=== PATIENT | male | born 1950 | race Caucasian/White ===

== ENCOUNTER 2018-11-07 06:06 | Day surgery (SDC) | payer MEDICARE ==
[2018-11-07] MEDS: Sodium Chloride 0.9% 1,000 ML IV SCH (07:08)
[2018-11-07] MEDS ORDERED: Midazolam 1 MG/ML 2 ML SDV ONE (07:08)
[2018-11-07] MEDS ORDERED: fentaNYL 100 MCG/2 ML SDV ONE (07:08)
[2018-11-07] MEDS ORDERED: Propofol 200 MG/20 ML SDV ONE (07:09)
[2018-11-07 09:07] VITALS: BP 108/73
--- NOTE | 2018-11-08 08:09 | PROC ---
DATE OF PROCEDURE: 11/07/2018 INDICATION: This is a 68-year-old male who comes in for a colonoscopy with a history of adenomatous polyps 5 years ago. The risks and benefits were explained to the patient and was taken to the OR. PROCEDURE IN DETAIL: Anesthesia was given by nurse welding supervisor. During the procedure, we used 2 mg of Versed, 100 mcg of fentanyl, and 110 mg of propofol. The Olympus 180-AL scope was used. It was placed into the rectum and after examination of the rectum with a gloved finger, the prostate was absent. The tube was placed in the rectum and advanced under direct vision. We did get to the cecum with minimal difficulty. Upon retraction of the tube, noted no lesions or ulceration, no abnormality throughout the entire colon. The tube was removed. The patient tolerated the procedure well. PREOPERATIVE DIAGNOSIS: History of adenomatous polyps. POSTOPERATIVE DIAGNOSIS: Normal colon from cecum to rectum. Routine screening should be done for this gentleman. Malik Eugene MD /[id number]
== END 2018-11-07 09:20 | disposition home or self-care (01) ==
LOC: JP.SDS 06:06
PROVIDERS: ATTEND Internal Medicine
DX: Z12.11 Encounter for screening for malignant neoplasm of colon (principal); Z86.010 Personal history of colon polyps; Z90.79 Acquired absence of other genital organ(s); I10 Essential (primary) hypertension
CPT/HCPCS: J2250; J2704; J3010; J7030

== ENCOUNTER 2019-12-16 10:01 | Emergency (ER) | payer MEDICARE ==
--- NOTE | 2019-12-16 11:21 | EDM.PDOC ---
ED HPI GENERAL MEDICAL PROBLEM - General Chief Complaint: Respiratory Problem Stated Complaint: PNEUMONIA GETTING WORSE Time Seen by Provider: 12/16/19 10:35 Source of Information: Reports: Patient History Limitations: Reports: No Limitations - History of Present Illness INITIAL COMMENTS - FREE TEXT/NARRATIVE: pt arrived with a known pneumonia. He is not improving like he should. His states he is having episodes where he gets sob. He is drinking and eating . He has not had a bm for the past 4-5 days. He does feel distended in his abdoman. He is not having pain in the abdoman. Onset: Gradual, Other (pt has been ill for 1 week. ) Duration: Day(s): Location: Reports: Chest, Abdomen, Other (pt is constipated. ) Associated Symptoms: Reports: Cough, Shortness of Breath, Other (pt is having episodes of sig sob. ) Chest Pain Score (Numeric/FACES): 6 - Related Data Allergies Allergy/AdvReac Type Severity Reaction Status Date / Time bee pollen Allergy Severe Anaphylactic Verified 12/20/19 12:24 Shock Home Meds: Home Meds EPINEPHrine [Epipen] 0.3 mg IM ASDIRECTED PRN 12/02/13 [History] Ascorbic Acid [Vitamin C] 500 mg PO DAILY 11/05/18 [History] Biotin 1 mg PO DAILY 11/05/18 [History] Cholecalciferol (Vitamin D3) [Vitamin D3] 2,000 unit PO DAILY 11/05/18 [History] Vitamin B Complex 1 each PO DAILY 11/05/18 [History] Lactobacillus Acidophilus [Probiotic] 1 each PO BID 04/22/19 [History] Amoxicillin/Potassium Clav [Amox Tr-K Clv 875-125 mg Tab] 1 each PO BID [History] predniSONE [Prednisone] 40 mg PO ASDIRECTED 12/16/19 [History] Past Medical History HEENT History: Reports: Allergic Rhinitis, Cataract, Hard of Hearing, Impaired Vision Cardiovascular History: Reports: High Cholesterol Respiratory History: Reports: Pneumonia, Recurrent Gastrointestinal History: Reports: Colon Polyp, PUD Genitourinary History: Reports: None Musculoskeletal History: Reports: Osteoarthritis Other Musculoskeletal History: right ankle pain- resolved as of 04/22/19 Neurological History: Reports: None Psychiatric History: Reports: None Endocrine/Metabolic History: Reports: None Hematologic History: Reports: Anemia Immunologic History: Reports: None Oncologic (Cancer) History: Reports: None Dermatologic History: Reports: None - Infectious Disease History Infectious Disease History: Reports: Chicken Pox - Past Surgical History Head Surgeries/Procedures: Reports: None HEENT Surgical History: Reports: None Cardiovascular Surgical History: Reports: None Respiratory Surgical History: Reports: None GI Surgical History: Reports: Colonoscopy Musculoskeletal Surgical History: Reports: Arthroscopic Knee, Other (See Below) Other Musculoskeletal Surgeries/Procedures:: Trigger right thumb Social & Family History - Tobacco Use Smoking Status *Q: Never Smoker - Caffeine Use Caffeine Use: Reports: Coffee, Soda, Tea - Recreational Drug Use Recreational Drug Use: No ED ROS GENERAL - Review of Systems Review Of Systems: See Below Constitutional: Reports: Chills, Malaise, Decreased Appetite HEENT: Reports: No Symptoms Respiratory: Reports: Shortness of Breath, Other (pt has episodes of sob. ) Cardiovascular: Reports: No Symptoms Endocrine: Reports: No Symptoms GI/Abdominal: Reports: No Symptoms : Reports: No Symptoms Musculoskeletal: Reports: No Symptoms Skin: Reports: No Symptoms ED EXAM, GENERAL - Physical Exam Exam: See Below Free Text/Narrative:: pt arrived because of fatique and feeling sob in episodes. He has not had a bm for the past 4-5 days. Exam Limited By: No Limitations General Appearance: Alert, Anxious, Mild Distress Ears: Normal TMs Nose: Normal Inspection Throat/Mouth: Normal Inspection Head: Atraumatic Neck: Normal Inspection Respiratory/Chest: Other (pt has good o2 sats. He is mildly wheezy. ) Cardiovascular: Regular Rate, Rhythm GI/Abdominal: Soft, Non-Tender (Male) Exam: Deferred Rectal (Males) Exam: Deferred Back Exam: Normal Inspection Extremities: Normal Inspection Neurological: Alert, Oriented, Normal Cognition Course - Vital Signs Last Recorded V/S: Last Vital Signs Temp 37.4 C 12/16/19 10:33 Pulse 67 12/16/19 10:55 Resp 21 H 12/16/19 10:29 BP 134/74 12/16/19 10:55 Pulse Ox 92 L 12/16/19 10:55 - Orders/Labs/Meds Labs: Laboratory Tests 12/16/19 12/16/19 12/16/19 Range/Units 11:00 11:00 11:00 WBC 6.8 (4.5-11.0) K/uL RBC 4.79 (4.30-5.90) M/uL Hgb 13.7 (12.0-15.0) g/dL Hct 42.2 (40.0-54.0) % MCV 88 (80-98) fL MCH 29 (27-31) pg MCHC 33 (32-36) % Plt Count 207 (150-400) K/uL Neut % (Auto) 72 H (36-66) % Lymph % (Auto) 10 L (24-44) % [place] % (Auto) 17 H (2-6) % Eos % (Auto) 0 L (2-4) % Baso % (Auto) 0 (0-1) % Sodium 141 (140-148) mmol/L Potassium 4.1 (3.6-5.2) mmol/L Chloride 103 (100-108) mmol/L Carbon Dioxide 28 (21-32) mmol/L Anion Gap 10.5 (5.0-14.0) mmol/L BUN 21 H (7-18) mg/dL Creatinine 1.2 (0.8-1.3) mg/dL Est Cr Clr Drug Dosing 61.97 mL/min Estimated GFR (MDRD) 60 (>60) Glucose 111 H (74-106) mg/dL Calcium 8.7 (8.5-10.1) mg/dL Total Bilirubin 0.6 (0.2-1.0) mg/dL AST 27 (15-37) U/L ALT 39 (12-78) U/L Alkaline Phosphatase 62 (46-116) U/L C-Reactive Protein 4.64 H (0.0-0.3) mg/dL Total Protein 6.7 (6.4-8.2) g/dL Albumin 3.6 (3.4-5.0) g/dL Globulin 3.1 (2.3-3.5) g/dL Albumin/Globulin Ratio 1.2 (1.2-2.2) Meds: Medications Discontinued Medications Generic Name Dose Route Start Last Admin Trade Name Freq PRN Reason Stop Dose Admin Albuterol 2.5 mg 12/16/19 12:11 12/16/19 12:41 Proventil Neb Soln NEB 12/16/19 12:12 2.5 mg ONETIME ONE Administration Bisacodyl 10 mg 12/16/19 11:33 12/16/19 11:42 Dulcolax RECTAL 12/16/19 11:34 10 mg ONETIME ONE Administration Magnesium Citrate 296 ml 12/16/19 11:33 12/16/19 11:42 Citrate Of Magnesia PO 12/16/19 11:34 296 ml ONETIME ONE Administration - Re-Assessments/Exams Free Text/Narrative Re-Assessment/Exam: 12/16/19 13:48 chest xray show a small area of infiltrate on the left. His wbc has dropped to 6,000. He does not have a fever. He dioes have alot of gas in the bowel and is constipated. He was given a bottle ogf magcitrate and a ducolax suupp. He did have a small stool with the supp. He was neg for unflu at the clinic. Departure - Departure Time of Disposition: 13:30 Disposition: Home, Self-Care 01 Condition: Fair Clinical Impression: Pneumonia, Constipation - Discharge Information Instructions: Upper Respiratory Infection, Adult, [id number] Referrals: PCP,None [Primary Care Provider] - Forms: ED Department Discharge Care Plan Goals: push fluides , high fiber diet, albuterol neb q6h for the next 4-5 days, finish the zithromax and augmentin, appt with Dr Eugene on sunday. send a nebulizer home with the pt. continue with the predisone Sepsis Event Note - Evaluation Sepsis Screening Result: No Definite Risk - Focused Exam Date Exam was Performed: 12/20/19 Time Exam was Performed: 19:15
[2019-12-16] MEDS ORDERED: Magnesium Citrate Solution 296 ML Bottle PO ONE (11:33)
[2019-12-16] MEDS ORDERED: Bisacodyl 10 MG Supp RECTAL ONE (11:33)
--- NOTE | 2019-12-16 11:39 | CR ---
CHEST: 2 view CLINICAL HISTORY:Pneumonia COMPARISON:None available FINDINGS: Heart size and pulmonary vascularity are normal. There is patchy density in the left lower lobe which appears to be pneumonic infiltrate. There is some mild patchy perihilar density on the right.. This could be some minimal atelectasis or infiltrate. There are no effusions. Impression: Patchy left lower lobe pneumonia Mild patchy right perihilar density. This may represent some patchy atelectasis or infiltrate Prior films would be helpful
[2019-12-16] MEDS ORDERED: Albuterol 0.083% 2.5 MG/3 ML Neb Soln NEB ONE (12:11)
== END 2019-12-16 13:53 | disposition home or self-care (01) ==
LOC: JP.ED 10:01
DX: J18.9 Pneumonia, unspecified organism (principal); K59.00 Constipation, unspecified; E78.00 Pure hypercholesterolemia, unspecified; Z79.899 Other long term (current) drug therapy; Z91.030 Bee allergy status
CPT/HCPCS: 36415; 71046; 71046-26; 80053; 85025; 86140; 94640; 99283; 99285-25; A9270-GY

== ENCOUNTER 2019-12-17 15:34 | Inpatient (IN) | payer MEDICARE ==
[2019-12-17] MEDS ORDERED: Sodium Chloride 0.9% 10 ML Syringe FLUSH PRN (15:55)
[2019-12-17] MEDS ORDERED: Dextrose 5%-0.45% NaCl 1,000 ML IV SCH (16:00)
[2019-12-17] MEDS ORDERED: Sodium Chloride 0.9% 1,000 ML IV SCH (19:30)
--- NOTE | 2019-12-17 19:46 | PCM.HP.2 ---
H&P History of Present Illness - General Date of Service: 12/17/19 Admit Problem/Dx: Admission Diagnosis/Problem Admission Diagnosis/Problem Ileus Source of Information: Patient, EMS, Family History Limitations: Reports: No Limitations, Respiratory Distress, Other ( Abdominal pain) - History of Present Illness Initial Comments - Free Text/Narative: He was seen 5 days ago and told he had pneumonia but the x-ray did not show a significant problem. He was started on Zithromax. He was started later after 2 visits to the ER and was placed on Augmentin. He has a sore throat and coughing and having abdominal pain. He was told he had constipation yesterday and took a laxative and passed liquid stools. He was complaining more about abd pain now made worse by a deep cough. Of concern is that he was exposed to multiple people who were on a ship and is concerned about the Coronavirus. He has production from a deep cough. He has had minimall food or liquids recently. ,He has had a fever up to 103 dec. F. Onset of Symptoms: Reports: Gradual, Other (5 days) Duration of Symptoms: Reports: Other (5 days) Location: Reports: Chest, Abdomen Abdomen Pain Score (Numeric/FACES): 0 - Related Data Allergies/Adverse Reactions: Allergies Allergy/AdvReac Type Severity Reaction Status Date / Time bee pollen Allergy Anaphylactic Verified 03/31/19 14:13 Shock Home Medications: Home Meds EPINEPHrine [Epipen] 0.3 mg IM ASDIRECTED PRN 12/02/13 [History] Ascorbic Acid [Vitamin C] 500 mg PO DAILY 11/05/18 [History] Biotin 1 mg PO DAILY 11/05/18 [History] Cholecalciferol (Vitamin D3) [Vitamin D3] 2,000 unit PO DAILY 11/05/18 [History] Vitamin B Complex 1 each PO DAILY 11/05/18 [History] Lactobacillus Acidophilus [Probiotic] 1 each PO BID 04/22/19 [History] Amoxicillin/Potassium Clav [Amox Tr-K Clv 875-125 mg Tab] 1 each PO BID [History] predniSONE [Prednisone] 40 mg PO ASDIRECTED 12/16/19 [History] Past Medical History HEENT History: Reports: Allergic Rhinitis, Cataract, Hard of Hearing, Impaired Vision Cardiovascular History: Reports: High Cholesterol Respiratory History: Reports: Pneumonia, Recurrent Gastrointestinal History: Reports: Colon Polyp, PUD Genitourinary History: Reports: None Musculoskeletal History: Reports: Osteoarthritis Other Musculoskeletal History: right ankle pain- resolved as of 04/22/19 Neurological History: Reports: None Psychiatric History: Reports: None Endocrine/Metabolic History: Reports: None Hematologic History: Reports: Anemia Immunologic History: Reports: None Oncologic (Cancer) History: Reports: None Dermatologic History: Reports: None - Infectious Disease History Infectious Disease History: Reports: Chicken Pox - Past Surgical History Head Surgeries/Procedures: Reports: None HEENT Surgical History: Reports: None Cardiovascular Surgical History: Reports: None Respiratory Surgical History: Reports: None GI Surgical History: Reports: Colonoscopy Musculoskeletal Surgical History: Reports: Arthroscopic Knee, Other (See Below) Other Musculoskeletal Surgeries/Procedures:: Trigger right thumb Social & Family History - Family History Family Medical History: Noncontributory - Tobacco Use Smoking Status *Q: Never Smoker Second Hand Smoke Exposure: No - Caffeine Use Caffeine Use: Reports: Soda - Recreational Drug Use Recreational Drug Use: No H&P Review of Systems - Review of Systems: Review Of Systems: See Below General: Reports: Fever, Chills, Malaise, Weakness, Fatigue, Decreased Appetite , Weight Loss HEENT: Reports: Sinus Congestion, Sore Throat Pulmonary: Reports: Shortness of Breath, Wheezing, Cough, Sputum Cardiovascular: Reports: No Symptoms Gastrointestinal: Reports: Abdominal Pain, Diarrhea, Decreased Appetite, Distension, Nausea Genitourinary: Reports: No Symptoms Skin: Reports: No Symptoms Neurological: Reports: Difficulty Walking, Weakness Exam - Exam Exam: See Below - Vital Signs Vital Signs: Last Vital Signs Temp 96.7 F L 12/17/19 15:51 Pulse 72 12/17/19 15:51 Resp 18 12/17/19 15:51 BP 142/78 H 12/17/19 15:51 Pulse Ox 95 12/17/19 15:51 Weight: 187 lb - Exam General: Oriented, Cooperative, Moderate Distress HEENT: PERRLA, Conjunctiva Clear, EACs Clear, Hearing Intact, Mucosa Moist & [place], Nares Patent, Normal Nasal Septum, Posterior Pharynx Clear Neck: Supple Lungs: Clear to Auscultation Cardiovascular: Regular Rate GI/Abdominal Exam: Tender, Abnormal Bowel Sounds Back Exam: Normal Inspection Extremities: Normal Inspection Peripheral Pulses: 1+: Radial (R), Femoral (L) Skin: Warm, Dry, Intact Neurological: Cranial Nerves Intact, Reflexes Equal Bilateral Neuro Extensive - Mental Status: Alert, Oriented x3, Normal Mood/Affect, Normal Cognition Neuro Extensive - Motor, Sensory, Reflexes: CN II-XII Intact, Normal Gait, Normal Reflexes Psychiatric: Alert, Labile Mood - Patient Data Result Diagrams: 12/17/19 20:25 12/17/19 20:25 Ken Results Last 24 hrs: Microbiology 12/17/19 18:43 Influenza Type A Antigen Screen - Final Nasal Aspirate, Right NEGATIVE INFLUENZA A VIRUS AG REFERENCE RANGE: NEGATIVE Influenza Type B Antigen Screen - Final NEGATIVE INFLUENZA B VIRUS AG REFERENCE RANGE: NEGATIVE Sepsis Event Note - Evaluation Sepsis Screening Result: No Definite Risk - Focused Exam Vital Signs: Vital Signs Temp Pulse Resp BP Pulse Ox 12/17/19 15:51 96.7 F L 72 18 142/78 H 95 Date Exam was Performed: 12/18/19 Time Exam was Performed: 08:53 Problem List Initiated/Reviewed/Updated: Yes Orders Last 24hrs: Active Orders 24 hr Category Date Time Status Admission Status [Patient Status] [ADT] Routine ADT 12/17/19 15:50 Active Patient Status [ADT] Routine ADT 12/17/19 19:23 Ordered Activity as Tolerated [RC] .Routine Care 12/17/19 17:11 Active Height and Weight [RC] DAILY Care 12/17/19 19:23 Ordered Intake and Output [RC] QSHIFT Care 12/17/19 19:25 Ordered Oxygen Therapy [RC] PRN Care 12/17/19 19:23 Ordered Peripheral IV Care [RC] . DIRECTED Care 12/17/19 15:55 Active Up to Chair [RC] QID Care 12/17/19 19:23 Ordered VTE/DVT Education [RC] Per Unit Routine Care 12/17/19 19:23 Ordered Vital Signs [RC] Q4H Care 12/17/19 15:51 Active Vital Signs [RC] Q4H Care 12/17/19 19:23 Ordered NPO Now [Nothing per Oral Now Diet] [DIET] Diet 12/17/19 Dinner Active CBC WITH AUTO DIFF [HEME] Routine Lab 12/17/19 19:28 Ordered COMPREHENSIVE METABOLIC PN,CMP [CHEM] Routine Lab 12/17/19 19:28 Ordered Dextrose 5%-0.45% NaCl [Dextrose 5%-1/2 NS] 1,000 ml Med 12/17/19 16:00 Active IV ASDIRECTED Sodium Chloride 0.9% @ 125 MLS/HR (1000ml) Med 12/17/19 19:30 Ordered Sodium Chloride 0.9% [Normal Saline] 1,000 ml IV ASDIRECTED Sodium Chloride 0.9% [Saline Flush] Med 12/17/19 15:55 Active 10 ml FLUSH ASDIRECTED PRN cefTRIAXone [Rocephin] 1 gm Med 12/17/19 19:45 Ordered Sodium Chloride 0.9% [Normal Saline] 50 ml IV Q24H Isolation [COMM] Routine Oth 12/17/19 18:37 Ordered Peripheral IV Insertion Adult [OM.PC] Routine Oth 12/17/19 15:55 Ordered SCD [Sequential Compression Device] [OM.PC] Routine Oth 12/17/19 15:51 Ordered Resuscitation Status Routine Resus Stat 12/17/19 19:23 Ordered Medication Orders Dextrose/Sodium Chloride (Dextrose 5%-1/2 Ns) 1,000 mls @ 125 mls/hr IV ASDIRECTED CLAUDIA Stop: 12/17/19 19:00 Sodium Chloride (Saline Flush) 10 ml FLUSH ASDIRECTED PRN PRN Reason: Keep Vein Open Assessment/Plan Comment:: Assessment/Plan: #1. Acute abd. pain with Ileus. I will consult Dr. Tha Corley. I will place a NG tube now and repeat the abd x-ray in the morning.Consider a CT of the Abd tomorrow. Will check for Inf. A and would like checked for Coronavirus if possible.
[2019-12-17] MEDS ORDERED: cefTRIAXone 1 GM in Sodium Chloride 0.9% 50 ML IV SCH (20:00)
[2019-12-17] MEDS: Dextrose 5%-0.9% NaCl 1,000 ML IV SCH (20:43)
[2019-12-18] MEDS: Dextrose 5%-0.9% NaCl 1,000 ML IV SCH ×2 (00:25→19:32)
--- NOTE | 2019-12-18 09:13 | CR ---
Abdomen 2V AP Flat Upright CLINICAL HISTORY: Abdominal pain FINDINGS: NG tube has been placed. It is curled in the fundus of the stomach. There is persistent small bowel and transverse colon distention. This appears to decreased slightly since prior study. There is now some gas and feces in the sigmoid which was not obvious on the prior study IMPRESSION: Slight decrease in gaseous distention There is now gas and feces seen in the sigmoid colon
[2019-12-18] MEDS ORDERED: Sodium Chloride 0.9% 10 ML Syringe FLUSH PRN (09:44)
[2019-12-18] MEDS ORDERED: Iopamidol 612 MG/ML 500 ML Multipack Bottle IV ONE (09:44)
--- NOTE | 2019-12-18 12:02 | CT ---
Abdomen Pelvis w Cont CLINICAL HISTORY: Ileus COMPARISON: 2014. TECHNIQUE: Transverse scans were obtained from the base of the lungs to the pubic symphysis following oral contrast and IV infusion of contrast.Auto dosage reduction and iterative reconstructiontechniques employed. FINDINGS: The lung bases are clear. There is some generalized bronchial thickening. The liver shows no mass or biliary dilatation. The gallbladder has a normal appearance. The spleen has a normal size and shape. There is an NG tube in the stomach. Patient is a small hiatal hernia. The pancreas shows no mass or inflammatory change. The adrenal glands appear normal bilaterally . The kidneys show no mass, stones or hydronephrosis. There are some atrophic changes in the right kidney with parenchymal loss.. There is a retroaortic left renal vein. The ureters have a normal contour. The aorta shows atheromatous plaque without aneurysm. There is no suspicious retroperitoneal adenopathy. There is gaseous distention of the transverse colon. There is a normal caliber left colon without a definitive transition point. No obstructing mass is identified. Small intestinal configuration is nonacute. IMPRESSION: Gaseous distention of transverse colon without obvious obstruction. This likely represents ileus. Small intestinal configuration is nonacute. There are some atrophic changes in the right kidney
[2019-12-18] MEDS: Pantoprazole 40 MG Vial IV SCH (13:56)
[2019-12-18] MEDS: Azithromycin 125 MG in Sodium Chloride 0.9% 100 ML IV SCH (13:59)
[2019-12-18] MEDS ORDERED: cefTRIAXone 2 GM in Sodium Chloride 0.9% 50 ML IV ONE (17:00)
--- NOTE | 2019-12-18 17:04 | PCM.PN ---
- General Info Date of Service: 12/18/19 Functional Status: Reports: Pain Controlled - Review of Systems General: Reports: Weakness, Fatigue, Malaise HEENT: Reports: Sore Throat Pulmonary: Reports: Shortness of Breath, Cough, Sputum, Wheezing Cardiovascular: Reports: No Symptoms, Dyspnea on Exertion Gastrointestinal: Reports: Diarrhea Genitourinary: Reports: No Symptoms Musculoskeletal: Reports: No Symptoms Skin: Reports: No Symptoms Neurological: Reports: Weakness Psychiatric: Reports: Anxiety - Patient Data Vitals - Most Recent: Last Vital Signs Temp 97.5 F 12/18/19 15:43 Pulse 60 12/18/19 15:43 Resp 16 12/18/19 15:43 BP 140/67 12/18/19 15:43 Pulse Ox 93 L 12/18/19 15:43 Weight - Most Recent: 182 lb 6.4 oz I&O - Last 24 Hours: Intake & Output 12/18/19 12/18/19 12/18/19 06:59 14:59 22:59 Intake Total 1626 Output Total 400 200 550 Balance 1226 -200 -550 Lab Results Last 24 Hours: Laboratory Results - last 24 hr 12/17/19 12/17/19 Range/Units 20:25 20:25 WBC 6.4 (4.5-11.0) K/uL RBC 5.16 (4.30-5.90) M/uL Hgb 14.8 (12.0-15.0) g/dL Hct 45.2 (40.0-54.0) % MCV 88 (80-98) fL MCH 29 (27-31) pg MCHC 33 (32-36) % Plt Count 230 (150-400) K/uL Neut % (Auto) 75 H (36-66) % Lymph % (Auto) 11 L (24-44) % [place] % (Auto) 14 H (2-6) % Eos % (Auto) 0 L (2-4) % Baso % (Auto) 1 (0-1) % Sodium 140 (140-148) mmol/L Potassium 4.4 (3.6-5.2) mmol/L Chloride 104 (100-108) mmol/L Carbon Dioxide 28 (21-32) mmol/L Anion Gap 8.0 (5.0-14.0) mmol/L BUN 26 H (7-18) mg/dL Creatinine 1.1 (0.8-1.3) mg/dL Est Cr Clr Drug Dosing 67.61 mL/min Estimated GFR (MDRD) > 60 (>60) Glucose 115 H (74-106) mg/dL Calcium 8.7 (8.5-10.1) mg/dL Total Bilirubin 0.5 (0.2-1.0) mg/dL AST 35 (15-37) U/L ALT 47 (12-78) U/L Alkaline Phosphatase 68 (46-116) U/L Total Protein 7.2 (6.4-8.2) g/dL Albumin 3.8 (3.4-5.0) g/dL Globulin 3.4 (2.3-3.5) g/dL Albumin/Globulin Ratio 1.1 L (1.2-2.2) Ken Results Last 24 Hours: Microbiology 12/18/19 12:03 Gram Stain - Final Sputum - Expectorated 12/17/19 18:43 Influenza Type A Antigen Screen - Final Nasal Aspirate, Right NEGATIVE INFLUENZA A VIRUS AG REFERENCE RANGE: NEGATIVE Influenza Type B Antigen Screen - Final NEGATIVE INFLUENZA B VIRUS AG REFERENCE RANGE: NEGATIVE Med Orders - Current: Current Medications Albuterol (Proventil Neb Soln) 2.5 mg NEB Q4H [facility] Dextrose/Sodium Chloride (Dextrose 5%-Normal Saline) 1,000 mls @ 125 mls/hr IV ASDIRECTED CLAUDIA Last Admin: 12/18/19 00:25 Dose: 125 mls/hr Azithromycin 125 mg/ Sodium (Chloride) 100 mls @ 200 mls/hr IV Q12H [facility] Last Admin: 12/18/19 13:59 Dose: 200 mls/hr Ceftriaxone Sodium 2 gm/ (Sodium Chloride) 50 mls @ 100 mls/hr IV ONETIME ONE Stop: 12/18/19 17:29 Ceftriaxone Sodium 1 gm/ (Sodium Chloride) 50 mls @ 100 mls/hr IV Q24H CLAUDIA Pantoprazole Sodium (Protonix Iv) 40 mg IV Q24H [facility] Last Admin: 12/18/19 13:56 Dose: 40 mg Sodium Chloride (Saline Flush) 10 ml FLUSH ASDIRECTED PRN PRN Reason: Keep Vein Open Discontinued Medications Dextrose/Sodium Chloride (Dextrose 5%-1/2 Ns) 1,000 mls @ 125 mls/hr IV ASDIRECTED CLAUDIA Stop: 12/17/19 19:00 Sodium Chloride (Normal Saline) 1,000 mls @ 125 mls/hr IV ASDIRECTED [facility] Ceftriaxone Sodium 1 gm/ (Sodium Chloride) 50 mls @ 100 mls/hr IV Q24H [facility] Last Admin: 12/17/19 20:35 Dose: 100 mls/hr Sodium Chloride (Normal Saline) 79 mls @ 3.5 mls/sec IV ASDIRECTED [facility] Stop: 12/18/19 09:46 Last Admin: 12/18/19 10:08 Dose: 3.5 mls/sec Iopamidol (Isovue-300 (61%)) 128 ml IV ONETIME ONE Stop: 12/18/19 09:45 Last Admin: 12/18/19 10:09 Dose: 128 ml Sodium Chloride (Saline Flush) 10 ml FLUSH ONETIME PRN PRN Reason: per radiology protocol Stop: 12/18/19 09:45 Last Admin: 12/18/19 10:08 Dose: 10 ml - Exam General: Alert, Oriented, Cooperative, Moderate Distress HEENT: Pupils Equal, Pupils Reactive Neck: Supple Lungs: Decreased Breath Sounds, Crackles, Rales, Rhonchi, Wheezing Cardiovascular: Regular Rate GI/Abdominal Exam: Tender, Abnormal Bowel Sounds Back Exam: Normal Inspection Extremities: Normal Inspection Peripheral Pulses: 1+: Radial (L), Radial (R) Skin: Warm, Dry Psy/Mental Status: Anxious Sepsis Event Note - Evaluation Sepsis Screening Result: No Definite Risk - Focused Exam Vital Signs: Vital Signs Temp Pulse Resp BP BP Pulse Ox 12/18/19 15:43 97.5 F 60 16 140/67 93 L 12/18/19 13:00 94 L 12/18/19 12:00 99.5 F 61 16 120/68 100 12/18/19 08:49 97.7 F 64 18 160/72 H 96 12/18/19 07:06 97 Date Exam was Performed: 12/18/19 Time Exam was Performed: 16:57 - Problem List Review Problem List Initiated/Reviewed/Updated: Yes - My Orders Last 24 Hours: My Active Orders 12/17/19 17:11 Activity as Tolerated [RC] .Routine 12/17/19 18:37 Isolation [COMM] Routine 12/17/19 19:23 Patient Status [ADT] Routine Height and Weight [RC] 0500 Oxygen Therapy [RC] PRN Up to Chair [RC] QID VTE/DVT Education [RC] Per Unit Routine Resuscitation Status Routine 12/17/19 19:25 Intake and Output [RC] QSHIFT 12/17/19 19:39 Gastrointestinal Tube Mgmt [RC] ASDIRECTED Pulse Oximetry Continuous Monitoring [OM.PC] Routine 12/17/19 19:45 Dextrose 5%-0.9% NaCl [Dextrose 5%-Normal Saline] 1,000 ml IV ASDIRECTED 12/17/19 Dinner NPO Now [Nothing per Oral Now Diet] [DIET] 12/18/19 14:15 Consult to Physical Therapy [PT Evaluation and Treatment] [CONS] Routine 12/18/19 15:04 RT Incentive Spirometry [RC] ASDIRECTED 12/18/19 16:41 RT Aerosol Therapy [RC] ASDIRECTED 12/18/19 17:00 Albuterol [Proventil Neb Soln] 2.5 mg NEB Q4H cefTRIAXone [Rocephin] 2 gm Sodium Chloride 0.9% [Normal Saline] 50 ml IV ONETIME 12/19/19 07:00 Chest wo Cont [CT] Routine 12/19/19 17:00 cefTRIAXone [Rocephin] 1 gm Sodium Chloride 0.9% [Normal Saline] 50 ml IV Q24H - Plan Plan:: Assessment/Plan: #1. Acute abd. pain with Ileus. I will consult Dr. Tha Corley. Repeat the abd x-ray in the morning. CT of the Abd this morning showed no etiology for the Ileus. #2. Respiratory distress: Wheezing bilaterally with rhonchi. Have started him on albuterol nebs and will get a CT of the Chest in the morning. Cultures are pending. Influ. A was negative.
[2019-12-18] MEDS: Albuterol 0.083% 2.5 MG/3 ML Neb Soln NEB SCH ×2 (17:09→22:21)
[2019-12-18] MEDS ORDERED: cefTRIAXone 1 GM in Sodium Chloride 0.9% 50 ML IV SCH (20:00)
[2019-12-19] MEDS: Azithromycin 125 MG in Sodium Chloride 0.9% 100 ML IV SCH ×2 (02:24→14:25)
[2019-12-19] MEDS: Albuterol 0.083% 2.5 MG/3 ML Neb Soln NEB SCH ×2 (02:24→06:01)
[2019-12-19] MEDS ORDERED: Albuterol/Ipratropium 3.0-0.5 MG/3 ML Neb Soln NEB PRN (08:58)
--- NOTE | 2019-12-19 09:10 | CR ---
CHEST: 2 view CLINICAL HISTORY:Cough COMPARISON:12/16/2019 FINDINGS: Heart size and pulmonary vascularity are normal. There is some elevation left hemidiaphragm which is similar to the recent study. The this was not present in 2015. There is mild prominence of the perihilar lung markings similar to prior study. IMPRESSION: Mild patchy perihilar density similar to prior study Patchy left infrahilar density persists. This may represent some subsegmental atelectasis. There is some elevation left hemidiaphragm which was not present on older CT. This could be from bowel distention.
[2019-12-19] MEDS: Bisacodyl 10 MG Supp RECTAL SCH ×2 (09:26→22:51)
[2019-12-19] MEDS: POTASSIUM PHOSPHATES IV SCH ×8 (09:45→18:24)
[2019-12-19] MEDS: WATER IV SCH ×4 (09:45→12:21)
[2019-12-19] MEDS: NACL IV SCH ×4 (09:45→18:24)
[2019-12-19] MEDS: DEXTROSE IV SCH ×8 (09:45→18:24)
--- NOTE | 2019-12-19 10:08 | CR ---
Abdomen 2V AP Flat Upright CLINICAL HISTORY: Ileus FINDINGS: There is persistent the moderate gaseous distention of the transverse colon. There are some scattered air-filled loops of small bowel. There is now more air in the descending colon. There is some gas and feces in the sigmoid. IMPRESSION: Persistent moderate colonic and mild small bowel distention. There is now more gas and feces in the left colon than on prior studies
--- NOTE | 2019-12-19 10:18 | CT ---
Chest wo Cont CLINICAL HISTORY: Follow-up pneumonia TECHNIQUE: Transverse scans were obtained from the thoracic inlet to the lung bases without contrast. Auto dosage reduction and iterative reconstruction techniques employed. COMPARISONS: Chest x-ray 12/16/2019 FINDINGS: There is some minimal scattered groundglass opacifications in the right upper lobe posteriorly. There is some streaky density in the left lower lobe which is felt to represent pleural parenchymal scarring or mild patchy atelectasis. There is some mild posterior pleural thickening in the right lower lobe. No effusions are seen. Patient has an NG tube in the esophagus. No mediastinal mass or lymphadenopathy is identified. Chest wall appears intact. Scans in the upper abdomen show no mass or adenopathy IMPRESSION: Minimal scattered groundglass opacities in the right upper lobe posteriorly. This may represent the minimal pneumonitis Scarring and/or atelectasis in the left lower lobe posteriorly No pulmonary mass or adenopathy
[2019-12-19] MEDS: Pantoprazole 40 MG Vial IV SCH (14:25)
[2019-12-19] MEDS: cefTRIAXone 1 GM in Sodium Chloride 0.9% 50 ML IV SCH (17:02)
--- NOTE | 2019-12-19 17:14 | PCM.PN ---
- General Info Date of Service: 12/19/19 Functional Status: Reports: Pain Controlled - Review of Systems General: Reports: Weakness, Fatigue HEENT: Reports: No Symptoms Pulmonary: Reports: Shortness of Breath, Cough, Sputum, Wheezing Cardiovascular: Reports: No Symptoms Gastrointestinal: Reports: Abdominal Pain, Decreased Appetite Genitourinary: Reports: No Symptoms Musculoskeletal: Reports: No Symptoms Skin: Reports: No Symptoms Neurological: Reports: No Symptoms Psychiatric: Reports: No Symptoms - Patient Data Vitals - Most Recent: Last Vital Signs Temp 97.8 F 12/19/19 15:00 Pulse 56 L 12/19/19 15:00 Resp 18 12/19/19 15:00 BP 145/69 H 12/19/19 15:00 Pulse Ox 95 12/19/19 15:00 Weight - Most Recent: 185 lb 3.2 oz I&O - Last 24 Hours: Intake & Output 12/19/19 12/19/19 12/19/19 06:59 14:59 22:59 Intake Total 1871 1146 50 Output Total 400 250 Balance 1871 746 -200 Lab Results Last 24 Hours: Laboratory Results - last 24 hr 12/19/19 12/19/19 Range/Units 04:05 04:05 WBC 5.5 (4.5-11.0) K/uL RBC 4.59 (4.30-5.90) M/uL Hgb 13.0 (12.0-15.0) g/dL Hct 40.7 (40.0-54.0) % MCV 89 (80-98) fL MCH 28 (27-31) pg MCHC 32 (32-36) % Plt Count 230 (150-400) K/uL Sodium 148 (140-148) mmol/L Potassium 3.3 L (3.6-5.2) mmol/L Chloride 111 H (100-108) mmol/L Carbon Dioxide 28 (21-32) mmol/L Anion Gap 12.3 (5.0-14.0) mmol/L BUN 16 (7-18) mg/dL Creatinine 1.1 (0.8-1.3) mg/dL Est Cr Clr Drug Dosing 67.70 mL/min Estimated GFR (MDRD) > 60 (>60) Glucose 111 H (74-106) mg/dL Calcium 8.5 (8.5-10.1) mg/dL Phosphorus 3.4 (2.5-4.9) mg/dL Magnesium 2.1 (1.8-2.4) mg/dL Total Bilirubin 0.4 (0.2-1.0) mg/dL AST 28 (15-37) U/L ALT 39 (12-78) U/L Alkaline Phosphatase 54 (46-116) U/L NT-Pro-B Natriuret Pep 142 H (5-125) pg/mL Total Protein 6.1 L (6.4-8.2) g/dL Albumin 3.2 L (3.4-5.0) g/dL Globulin 2.9 (2.3-3.5) g/dL Albumin/Globulin Ratio 1.1 L (1.2-2.2) Ken Results Last 24 Hours: Microbiology 12/18/19 12:03 Gram Stain - Final Sputum - Expectorated Respiratory Culture - Preliminary Med Orders - Current: Current Medications Albuterol/Ipratropium (Duoneb 3.0-0.5 Mg/3 Ml) 3 ml NEB Q4H PRN PRN Reason: Shortness of Breath Bisacodyl (Dulcolax) 10 mg RECTAL BID [facility] Stop: 12/19/19 21:01 Last Admin: 12/19/19 09:26 Dose: 10 mg Azithromycin 125 mg/ Sodium (Chloride) 100 mls @ 200 mls/hr IV Q12H [facility] Last Admin: 12/19/19 14:25 Dose: 200 mls/hr Ceftriaxone Sodium 1 gm/ (Sodium Chloride) 50 mls @ 100 mls/hr IV Q24H [facility] Last Admin: 12/19/19 17:02 Dose: 100 mls/hr Potassium Phosphate 15 mmole/ (Dextrose/Sodium Chloride) 1,005 mls @ 125 mls/ hr IV .Q8H3M [facility] Last Admin: 12/19/19 09:45 Dose: 125 mls/hr Pantoprazole Sodium (Protonix Iv) 40 mg IV Q24H [facility] Last Admin: 12/19/19 14:25 Dose: 40 mg Potassium Chloride (Klor-Con M20) 20 meq PO DAILY [facility] Sodium Chloride (Saline Flush) 10 ml FLUSH ASDIRECTED PRN PRN Reason: Keep Vein Open Discontinued Medications Albuterol (Proventil Neb Soln) 2.5 mg NEB Q4H [facility] Last Admin: 12/19/19 06:01 Dose: 2.5 mg Dextrose/Sodium Chloride (Dextrose 5%-1/2 Ns) 1,000 mls @ 125 mls/hr IV ASDIRECTED [facility] Stop: 12/17/19 19:00 Sodium Chloride (Normal Saline) 1,000 mls @ 125 mls/hr IV ASDIRECTED [facility] Ceftriaxone Sodium 1 gm/ (Sodium Chloride) 50 mls @ 100 mls/hr IV Q24H [facility] Last Admin: 12/17/19 20:35 Dose: 100 mls/hr Dextrose/Sodium Chloride (Dextrose 5%-Normal Saline) 1,000 mls @ 125 mls/hr IV ASDIRECTED [facility] Stop: 12/19/19 09:59 Last Admin: 12/18/19 19:32 Dose: 125 mls/hr Sodium Chloride (Normal Saline) 79 mls @ 3.5 mls/sec IV ASDIRECTED [facility] Stop: 12/18/19 09:46 Last Admin: 12/18/19 10:08 Dose: 3.5 mls/sec Ceftriaxone Sodium 2 gm/ (Sodium Chloride) 50 mls @ 100 mls/hr IV ONETIME ONE Stop: 12/18/19 17:29 Last Admin: 12/18/19 17:11 Dose: 100 mls/hr Potassium Phosphate 15 mmole/ (Dextrose/Water) 255 mls @ 125 mls/hr IV Q2H [facility] Stop: 12/19/19 13:59 Last Admin: 12/19/19 12:21 Dose: 125 mls/hr Iopamidol (Isovue-300 (61%)) 128 ml IV ONETIME ONE Stop: 12/18/19 09:45 Last Admin: 12/18/19 10:09 Dose: 128 ml Sodium Chloride (Saline Flush) 10 ml FLUSH ONETIME PRN PRN Reason: per radiology protocol Stop: 12/18/19 09:45 Last Admin: 12/18/19 10:08 Dose: 10 ml - Exam General: Alert, Oriented HEENT: Pupils Equal Neck: Supple Lungs: Decreased Breath Sounds, Rhonchi, Wheezing Cardiovascular: Regular Rate, Regular Rhythm GI/Abdominal Exam: Soft, No Distention Back Exam: Normal Inspection, Full Range of Motion Extremities: Normal Inspection, Normal Range of Motion, Non-Tender, No Pedal Edema, Normal Capillary Refill Peripheral Pulses: 1+: Radial (L), Radial (R) Skin: Warm, Dry, Intact Neurological: No New Focal Deficit Psy/Mental Status: Alert, Normal Affect Sepsis Event Note - Evaluation Sepsis Screening Result: No Definite Risk - Focused Exam Vital Signs: Vital Signs Temp Pulse Resp BP Pulse Ox 12/19/19 15:00 97.8 F 56 L 18 145/69 H 95 12/19/19 12:36 96 12/19/19 10:45 98.2 F 62 18 129/71 95 12/19/19 07:41 97 12/19/19 07:34 97.6 F 63 18 124/57 L 96 Date Exam was Performed: 12/19/19 Time Exam was Performed: 17:08 - Problem List Review Problem List Initiated/Reviewed/Updated: Yes - My Orders Last 24 Hours: My Active Orders 12/18/19 16:41 RT Aerosol Therapy [RC] ASDIRECTED 12/19/19 08:58 Albuterol/Ipratropium [DuoNeb 3.0-0.5 MG/3 ML] 3 ml NEB Q4H PRN 12/19/19 10:00 Dextrose 5%-0.45% NaCl [Dextrose 5%-1/2 NS] 1,000 ml Potassium Phosphates 15 mmole IV 125 mls/hr 12/19/19 17:00 cefTRIAXone [Rocephin] 1 gm Sodium Chloride 0.9% [Normal Saline] 50 ml IV Q24H 12/19/19 17:15 Potassium Chloride [Klor-Con M20] 20 meq PO DAILY - Plan Plan:: Assessment/Plan: #1. Acute abd. pain with Ileus. He is making slow improvement. Still air in the colon. He is walking and feeling better. #2. Respiratory distress: Wheezing bilaterally with rhonchi. Have started him on duo nebs as their is minimual production presently. This is a change from just Albuterol nebs. #3. Hypo kalemia. rico started him on k supplementation.
[2019-12-19] MEDS ORDERED: Potassium Chloride 20 MEQ Tab.ER PO SCH (17:30)
[2019-12-20] MEDS: Azithromycin 125 MG in Sodium Chloride 0.9% 100 ML IV SCH ×2 (01:35→14:02)
[2019-12-20] MEDS: POTASSIUM PHOSPHATES IV SCH ×8 (02:35→19:51)
[2019-12-20] MEDS: NACL IV SCH ×8 (02:35→19:51)
[2019-12-20] MEDS: DEXTROSE IV SCH ×8 (02:35→19:51)
[2019-12-20] MEDS ORDERED: Furosemide 20 MG/2 ML VIAL IV ONE (09:00)
[2019-12-20] MEDS: Pantoprazole 40 MG Vial IV SCH (14:02)
[2019-12-20] MEDS: cefTRIAXone 1 GM in Sodium Chloride 0.9% 50 ML IV SCH (17:00)
[2019-12-21] MEDS: Azithromycin 125 MG in Sodium Chloride 0.9% 100 ML IV SCH (01:21)
[2019-12-21] MEDS: POTASSIUM PHOSPHATES IV SCH ×4 (05:19→05:44)
[2019-12-21] MEDS: NACL IV SCH ×4 (05:19→05:44)
[2019-12-21] MEDS: DEXTROSE IV SCH ×4 (05:19→05:44)
[2019-12-21] MEDS ORDERED: Furosemide 20 MG/2 ML VIAL IV ONE (09:00)
[2019-12-21] MEDS: Bisacodyl 5 MG Tab PO SCH ×2 (09:26→20:06)
[2019-12-21] MEDS ORDERED: Ketorolac 30 MG/ML SDV IVPUSH ONE (10:45)
--- NOTE | 2019-12-21 11:07 | PCM.PN ---
- General Info Date of Service: 12/20/19 Functional Status: Reports: Pain Controlled - Review of Systems General: Reports: Weakness, Fatigue HEENT: Reports: No Symptoms Pulmonary: Reports: Shortness of Breath, Cough, Sputum, Wheezing Cardiovascular: Reports: No Symptoms Gastrointestinal: Reports: Abdominal Pain Genitourinary: Reports: No Symptoms Musculoskeletal: Reports: No Symptoms Skin: Reports: No Symptoms Neurological: Reports: No Symptoms - Patient Data Vitals - Most Recent: Last Vital Signs Temp 98.9 F 12/21/19 07:33 Pulse 66 12/21/19 07:33 Resp 16 12/21/19 07:33 BP 173/86 H 12/21/19 07:33 Pulse Ox 97 12/21/19 07:33 Weight - Most Recent: 186 lb I&O - Last 24 Hours: Intake & Output 12/20/19 12/21/19 12/21/19 22:59 06:59 14:59 Intake Total 100 220 Output Total 800 1025 400 Balance -700 -026 -400 Lab Results Last 24 Hours: Laboratory Results - last 24 hr 12/21/19 12/21/19 Range/Units 04:25 04:25 WBC 6.1 (4.5-11.0) K/uL RBC 4.59 (4.30-5.90) M/uL Hgb 13.3 (12.0-15.0) g/dL Hct 39.7 L (40.0-54.0) % MCV 87 (80-98) fL MCH 29 (27-31) pg MCHC 34 (32-36) % Plt Count 233 (150-400) K/uL Neut % (Auto) 64 (36-66) % Lymph % (Auto) 20 L (24-44) % [place] % (Auto) 12 H (2-6) % Eos % (Auto) 4 (2-4) % Baso % (Auto) 0 (0-1) % Sodium 143 (140-148) mmol/L Potassium 4.2 (3.6-5.2) mmol/L Chloride 107 (100-108) mmol/L Carbon Dioxide 28 (21-32) mmol/L Anion Gap 8.1 (5.0-14.0) mmol/L BUN 7 (7-18) mg/dL Creatinine 1.0 (0.8-1.3) mg/dL Est Cr Clr Drug Dosing 74.47 mL/min Estimated GFR (MDRD) > 60 (>60) Glucose 99 (74-106) mg/dL Calcium 8.5 (8.5-10.1) mg/dL Phosphorus 4.5 (2.5-4.9) mg/dL Magnesium 2.0 (1.8-2.4) mg/dL Total Bilirubin 0.8 D (0.2-1.0) mg/dL AST 32 (15-37) U/L ALT 58 (12-78) U/L Alkaline Phosphatase 62 (46-116) U/L NT-Pro-B Natriuret Pep 340 H (5-125) pg/mL Total Protein 6.0 L (6.4-8.2) g/dL Albumin 3.0 L (3.4-5.0) g/dL Globulin 3.0 (2.3-3.5) g/dL Albumin/Globulin Ratio 1.0 L (1.2-2.2) Ken Results Last 24 Hours: Microbiology 12/18/19 12:03 Gram Stain - Final Sputum - Expectorated Respiratory Culture - Final Viridans Streptococcus Med Orders - Current: Current Medications Albuterol/Ipratropium (Duoneb 3.0-0.5 Mg/3 Ml) 3 ml NEB Q4H PRN PRN Reason: Shortness of Breath Azithromycin (Zithromax) 250 mg PO DAILY [facility] Bisacodyl (Dulcolax) 10 mg PO BID [facility] Last Admin: 12/21/19 09:26 Dose: 10 mg Pantoprazole Sodium (Protonix) 40 mg PO ACBREAKFAST [facility] Sodium Chloride (Saline Flush) 10 ml FLUSH ASDIRECTED PRN PRN Reason: Keep Vein Open Discontinued Medications Albuterol (Proventil Neb Soln) 2.5 mg NEB Q4H [facility] Last Admin: 12/19/19 06:01 Dose: 2.5 mg Bisacodyl (Dulcolax) 10 mg RECTAL BID [facility] Stop: 12/19/19 21:01 Last Admin: 12/19/19 22:51 Dose: 10 mg Furosemide (Lasix) 10 mg IV ONETIME ONE Stop: 12/20/19 09:01 Last Admin: 12/20/19 09:37 Dose: 10 mg Furosemide (Lasix) 20 mg IV ONETIME ONE Stop: 12/21/19 09:01 Last Admin: 12/21/19 09:26 Dose: 20 mg Dextrose/Sodium Chloride (Dextrose 5%-1/2 Ns) 1,000 mls @ 125 mls/hr IV ASDIRECTED [facility] Stop: 12/17/19 19:00 Sodium Chloride (Normal Saline) 1,000 mls @ 125 mls/hr IV ASDIRECTED [facility] Ceftriaxone Sodium 1 gm/ (Sodium Chloride) 50 mls @ 100 mls/hr IV Q24H [facility] Last Admin: 12/17/19 20:35 Dose: 100 mls/hr Dextrose/Sodium Chloride (Dextrose 5%-Normal Saline) 1,000 mls @ 125 mls/hr IV ASDIRECTED [facility] Stop: 12/19/19 09:59 Last Admin: 12/18/19 19:32 Dose: 125 mls/hr Sodium Chloride (Normal Saline) 79 mls @ 3.5 mls/sec IV ASDIRECTED [facility] Stop: 12/18/19 09:46 Last Admin: 12/18/19 10:08 Dose: 3.5 mls/sec Azithromycin 125 mg/ Sodium (Chloride) 100 mls @ 200 mls/hr IV Q12H [facility] Last Admin: 12/21/19 01:21 Dose: 200 mls/hr Ceftriaxone Sodium 2 gm/ (Sodium Chloride) 50 mls @ 100 mls/hr IV ONETIME ONE Stop: 12/18/19 17:29 Last Admin: 12/18/19 17:11 Dose: 100 mls/hr Ceftriaxone Sodium 1 gm/ (Sodium Chloride) 50 mls @ 100 mls/hr IV Q24H [facility] Last Admin: 12/20/19 17:00 Dose: 100 mls/hr Potassium Phosphate 15 mmole/ (Dextrose/Water) 255 mls @ 125 mls/hr IV Q2H [facility] Stop: 12/19/19 13:59 Last Admin: 12/19/19 12:21 Dose: 125 mls/hr Potassium Phosphate 15 mmole/ (Dextrose/Sodium Chloride) 1,005 mls @ 100 mls/ hr IV .Q10H3M [facility] Stop: 12/20/19 09:50 Last Admin: 12/20/19 02:35 Dose: 125 mls/hr Potassium Phosphate 15 mmole/ (Dextrose/Sodium Chloride) 1,005 mls @ 75 mls/hr IV .[id number] [facility] Stop: 12/21/19 15:00 Last Admin: 12/21/19 05:44 Dose: 100 mls/hr Potassium Phosphate 15 mmole/ (Dextrose/Sodium Chloride) 1,005 mls @ 75 mls/hr IV .[id number] [facility] Iopamidol (Isovue-300 (61%)) 128 ml IV ONETIME ONE Stop: 12/18/19 09:45 Last Admin: 12/18/19 10:09 Dose: 128 ml Ketorolac Tromethamine (Toradol) 15 mg IVPUSH ONETIME ONE Stop: 12/21/19 10:46 Last Admin: 12/21/19 10:44 Dose: 15 mg Pantoprazole Sodium (Protonix Iv) 40 mg IV Q24H [facility] Last Admin: 12/20/19 14:02 Dose: 40 mg Potassium Chloride (Klor-Con M20) 20 meq PO DAILY [facility] Last Admin: 12/19/19 22:53 Dose: Not Given Sodium Chloride (Saline Flush) 10 ml FLUSH ONETIME PRN PRN Reason: per radiology protocol Stop: 12/18/19 09:45 Last Admin: 12/18/19 10:08 Dose: 10 ml - Exam General: Alert, Oriented HEENT: Pupils Equal Neck: Supple Lungs: Decreased Breath Sounds, Rhonchi, Wheezing Cardiovascular: Regular Rate, Regular Rhythm GI/Abdominal Exam: Distended, Abnormal Bowel Sounds Back Exam: Normal Inspection Extremities: Normal Inspection, Normal Range of Motion, Non-Tender, No Pedal Edema, Normal Capillary Refill Peripheral Pulses: 1+: Radial (L), Radial (R) Skin: Warm, Dry, Intact Neurological: No New Focal Deficit Sepsis Event Note - Evaluation Sepsis Screening Result: No Definite Risk - Focused Exam Vital Signs: Vital Signs Temp Pulse Resp BP Pulse Ox 12/21/19 07:33 98.9 F 66 16 173/86 H 97 12/21/19 03:00 97.5 F 63 139/70 95 Date Exam was Performed: 12/21/19 Time Exam was Performed: 11:02 - Problem List Review Problem List Initiated/Reviewed/Updated: Yes - My Orders Last 24 Hours: My Active Orders 12/21/19 10:50 Convert IV to Saline Lock [OM.PC] Stat 12/21/19 10:53 Dietary Supplements [RC] BIDMEALS 12/21/19 14:00 Azithromycin [Zithromax] 250 mg PO DAILY 12/22/19 07:30 Pantoprazole [ProTONIX] 40 mg PO ACBREAKFAST - Plan Plan:: Assessment/Plan: #1. Acute abd. pain with Ileus. He is making slow improvement. Still air in the colon. He is walking and feeling better. #2. Respiratory distress: Wheezing bilaterally with rhonchi. Have started him on duo nebs as their is minimual production presently. This is a change from just Albuterol nebs. #3. Hypo kalemia. rico started him on k supplementation. He is making improvement but still in respiratory distress and continues abd pain but improved clinically and by x-rays. Will continue with the rocephin and Zithromax.
--- NOTE | 2019-12-21 11:16 | PCM.PN ---
- General Info Date of Service: 12/21/19 Subjective Update: He is feeling much better and passing stools and minimal abd pain. The NG tube is out Functional Status: Reports: Pain Controlled - Review of Systems General: Reports: No Symptoms HEENT: Reports: No Symptoms Pulmonary: Reports: No Symptoms Cardiovascular: Reports: No Symptoms Gastrointestinal: Reports: No Symptoms Genitourinary: Reports: No Symptoms Musculoskeletal: Reports: No Symptoms Skin: Reports: No Symptoms Neurological: Reports: No Symptoms Psychiatric: Reports: No Symptoms - Patient Data Vitals - Most Recent: Last Vital Signs Temp 98.9 F 12/21/19 07:33 Pulse 66 12/21/19 07:33 Resp 16 12/21/19 07:33 BP 173/86 H 12/21/19 07:33 Pulse Ox 97 12/21/19 07:33 Weight - Most Recent: 186 lb I&O - Last 24 Hours: Intake & Output 12/20/19 12/21/19 12/21/19 22:59 06:59 14:59 Intake Total 100 220 Output Total 800 1025 400 Balance -700 -805 -400 Lab Results Last 24 Hours: Laboratory Results - last 24 hr 12/21/19 12/21/19 Range/Units 04:25 04:25 WBC 6.1 (4.5-11.0) K/uL RBC 4.59 (4.30-5.90) M/uL Hgb 13.3 (12.0-15.0) g/dL Hct 39.7 L (40.0-54.0) % MCV 87 (80-98) fL MCH 29 (27-31) pg MCHC 34 (32-36) % Plt Count 233 (150-400) K/uL Neut % (Auto) 64 (36-66) % Lymph % (Auto) 20 L (24-44) % [place] % (Auto) 12 H (2-6) % Eos % (Auto) 4 (2-4) % Baso % (Auto) 0 (0-1) % Sodium 143 (140-148) mmol/L Potassium 4.2 (3.6-5.2) mmol/L Chloride 107 (100-108) mmol/L Carbon Dioxide 28 (21-32) mmol/L Anion Gap 8.1 (5.0-14.0) mmol/L BUN 7 (7-18) mg/dL Creatinine 1.0 (0.8-1.3) mg/dL Est Cr Clr Drug Dosing 74.47 mL/min Estimated GFR (MDRD) > 60 (>60) Glucose 99 (74-106) mg/dL Calcium 8.5 (8.5-10.1) mg/dL Phosphorus 4.5 (2.5-4.9) mg/dL Magnesium 2.0 (1.8-2.4) mg/dL Total Bilirubin 0.8 D (0.2-1.0) mg/dL AST 32 (15-37) U/L ALT 58 (12-78) U/L Alkaline Phosphatase 62 (46-116) U/L NT-Pro-B Natriuret Pep 340 H (5-125) pg/mL Total Protein 6.0 L (6.4-8.2) g/dL Albumin 3.0 L (3.4-5.0) g/dL Globulin 3.0 (2.3-3.5) g/dL Albumin/Globulin Ratio 1.0 L (1.2-2.2) Ken Results Last 24 Hours: Microbiology 12/18/19 12:03 Gram Stain - Final Sputum - Expectorated Respiratory Culture - Final Viridans Streptococcus Med Orders - Current: Current Medications Albuterol/Ipratropium (Duoneb 3.0-0.5 Mg/3 Ml) 3 ml NEB Q4H PRN PRN Reason: Shortness of Breath Azithromycin (Zithromax) 250 mg PO DAILY [facility] Bisacodyl (Dulcolax) 10 mg PO BID [facility] Last Admin: 12/21/19 09:26 Dose: 10 mg Pantoprazole Sodium (Protonix) 40 mg PO ACBREAKFAST [facility] Sodium Chloride (Saline Flush) 10 ml FLUSH ASDIRECTED PRN PRN Reason: Keep Vein Open Discontinued Medications Albuterol (Proventil Neb Soln) 2.5 mg NEB Q4H [facility] Last Admin: 12/19/19 06:01 Dose: 2.5 mg Bisacodyl (Dulcolax) 10 mg RECTAL BID [facility] Stop: 12/19/19 21:01 Last Admin: 12/19/19 22:51 Dose: 10 mg Furosemide (Lasix) 10 mg IV ONETIME ONE Stop: 12/20/19 09:01 Last Admin: 12/20/19 09:37 Dose: 10 mg Furosemide (Lasix) 20 mg IV ONETIME ONE Stop: 12/21/19 09:01 Last Admin: 12/21/19 09:26 Dose: 20 mg Dextrose/Sodium Chloride (Dextrose 5%-1/2 Ns) 1,000 mls @ 125 mls/hr IV ASDIRECTED [facility] Stop: 12/17/19 19:00 Sodium Chloride (Normal Saline) 1,000 mls @ 125 mls/hr IV ASDIRECTED [facility] Ceftriaxone Sodium 1 gm/ (Sodium Chloride) 50 mls @ 100 mls/hr IV Q24H [facility] Last Admin: 12/17/19 20:35 Dose: 100 mls/hr Dextrose/Sodium Chloride (Dextrose 5%-Normal Saline) 1,000 mls @ 125 mls/hr IV ASDIRECTED [facility] Stop: 12/19/19 09:59 Last Admin: 12/18/19 19:32 Dose: 125 mls/hr Sodium Chloride (Normal Saline) 79 mls @ 3.5 mls/sec IV ASDIRECTED [facility] Stop: 12/18/19 09:46 Last Admin: 12/18/19 10:08 Dose: 3.5 mls/sec Azithromycin 125 mg/ Sodium (Chloride) 100 mls @ 200 mls/hr IV Q12H [facility] Last Admin: 12/21/19 01:21 Dose: 200 mls/hr Ceftriaxone Sodium 2 gm/ (Sodium Chloride) 50 mls @ 100 mls/hr IV ONETIME ONE Stop: 12/18/19 17:29 Last Admin: 12/18/19 17:11 Dose: 100 mls/hr Ceftriaxone Sodium 1 gm/ (Sodium Chloride) 50 mls @ 100 mls/hr IV Q24H [facility] Last Admin: 12/20/19 17:00 Dose: 100 mls/hr Potassium Phosphate 15 mmole/ (Dextrose/Water) 255 mls @ 125 mls/hr IV Q2H [facility] Stop: 12/19/19 13:59 Last Admin: 12/19/19 12:21 Dose: 125 mls/hr Potassium Phosphate 15 mmole/ (Dextrose/Sodium Chloride) 1,005 mls @ 100 mls/ hr IV .Q10H3M [facility] Stop: 12/20/19 09:50 Last Admin: 12/20/19 02:35 Dose: 125 mls/hr Potassium Phosphate 15 mmole/ (Dextrose/Sodium Chloride) 1,005 mls @ 75 mls/hr IV .[id number] [facility] Stop: 12/21/19 15:00 Last Admin: 12/21/19 05:44 Dose: 100 mls/hr Potassium Phosphate 15 mmole/ (Dextrose/Sodium Chloride) 1,005 mls @ 75 mls/hr IV .[id number] [facility] Iopamidol (Isovue-300 (61%)) 128 ml IV ONETIME ONE Stop: 12/18/19 09:45 Last Admin: 12/18/19 10:09 Dose: 128 ml Ketorolac Tromethamine (Toradol) 15 mg IVPUSH ONETIME ONE Stop: 12/21/19 10:46 Last Admin: 12/21/19 10:44 Dose: 15 mg Pantoprazole Sodium (Protonix Iv) 40 mg IV Q24H [facility] Last Admin: 12/20/19 14:02 Dose: 40 mg Potassium Chloride (Klor-Con M20) 20 meq PO DAILY [facility] Last Admin: 12/19/19 22:53 Dose: Not Given Sodium Chloride (Saline Flush) 10 ml FLUSH ONETIME PRN PRN Reason: per radiology protocol Stop: 12/18/19 09:45 Last Admin: 12/18/19 10:08 Dose: 10 ml - Exam General: Alert, Oriented, Cooperative, No Acute Distress HEENT: Pupils Equal, Pupils Reactive Neck: Supple Lungs: Clear to Auscultation, Normal Respiratory Effort Cardiovascular: Regular Rate GI/Abdominal Exam: Normal Bowel Sounds, Soft, Non-Tender Back Exam: Normal Inspection, Full Range of Motion Extremities: Normal Inspection Peripheral Pulses: 1+: Radial (L), Radial (R) Skin: Warm, Dry, Intact Neurological: No New Focal Deficit Psy/Mental Status: Alert, Normal Affect, Normal Mood Sepsis Event Note - Evaluation Sepsis Screening Result: No Definite Risk - Focused Exam Vital Signs: Vital Signs Temp Pulse Resp BP Pulse Ox 12/21/19 07:33 98.9 F 66 16 173/86 H 97 12/21/19 03:00 97.5 F 63 139/70 95 Date Exam was Performed: 12/21/19 Time Exam was Performed: 11:07 - Problem List Review Problem List Initiated/Reviewed/Updated: Yes - My Orders Last 24 Hours: My Active Orders 12/21/19 10:50 Convert IV to Saline Lock [OM.PC] Stat 12/21/19 10:53 Dietary Supplements [RC] BIDMEALS 12/21/19 14:00 Azithromycin [Zithromax] 250 mg PO DAILY 12/22/19 07:30 Pantoprazole [ProTONIX] 40 mg PO ACBREAKFAST - Plan Plan:: Assessment/Plan: #1. Acute abd. pain with Ileus. He has normal bowel sounds this morning and x-ray of the abd normal. Dr. Corley DC's the ng tube. #2. Respiratory distress has resolved and lungs clear presently #3. Hypo kalemia. resolved. Have changed the K to PO from IV. He is doing much better so have changed the IV to saline lock. He is eating well. Have DC'd the Rocephin and change the Zithromax to PO for gut motility. Hopefully home in the morning.
--- NOTE | 2019-12-21 13:41 | PN ---
DATE OF SERVICE: 12/20/2019 The patient has been normothermic with temperature in the 97 and 98 range, heart rates in the 50s to 90 range, and blood pressure a little bit elevated at 157/73. We started a low dose of Lasix this morning. Otherwise, he is beginning to pass some gas. Abdominal x-ray this morning shows most of the air to be in the large bowel and apparently he did have 1 small bowel movement, but otherwise suppository, but nothing much else. Respiratory status is about unchanged. O2 sats are in the upper 90s with some nasal cannula oxygen. PA chest x-ray showed left infrahilar patchy density. I think we will check another chest x-ray tomorrow. Otherwise, continue to work on pulmonary toilet, and we will continue to give the bowel stimulation. I think we will leave the NG tube in 1 more day. Buck Corley MD /[id number]
[2019-12-21] MEDS: Azithromycin 250 MG Tab PO SCH (13:49)
--- NOTE | 2019-12-21 14:41 | PN ---
DATE OF SERVICE: 12/19/2019 The patient has been afebrile with stable vital signs. Cough is still present but much less pronounced. Chest x-ray this morning to me looks unchanged, i.e. no obvious infiltrates. CT of the chest was done yesterday, the reading on that is pending. Abdominal x-ray has markedly improved. There is still quite a bit of distended colon especially and some small bowel consistent with a degree of ileus, but he is passing gas and the amount of air overall has decreased quite strikingly. NG tube remains in good position. Labs show normal white count at 5.5. The electrolytes show a low potassium at 3.3 and somewhat elevated sodium and chloride at 148 and 111 respectively. Abdomen is quite a bit softer and remains nontender today. The plan will be to begin the dulcolax suppository in the morning. Continue with IV Zithromax to augment GI tract motility. We will check abdominal x-ray in the morning. We will give him some K-Phos IV and the change the IV to D5 half-normal with 15 millimoles of K-Phos per liter which should help correct some of electrolyte issues and recheck some labs in the morning. The Gram stain on the sputum yesterday showed some gram- positive cocci, and at this point, we will leave him on the Rocephin as it appears to be responding. Buck Corley MD /[id number]
[2019-12-21] MEDS ORDERED: NACL IV SCH ×2 (17:00)
[2019-12-21] MEDS ORDERED: DEXTROSE IV SCH ×2 (17:00)
[2019-12-21] MEDS ORDERED: POTASSIUM PHOSPHATES IV SCH ×2 (17:00)
[2019-12-22] MEDS ORDERED: Pantoprazole 40 MG Tab.CR PO SCH (07:30)
[2019-12-22] MEDS: Bisacodyl 5 MG Tab PO SCH (08:02)
[2019-12-22] MEDS: Azithromycin 250 MG Tab PO SCH (08:03)
--- NOTE | 2019-12-22 08:58 | CR ---
CHEST: 2 view CLINICAL HISTORY:Follow-up infiltrates COMPARISON:12/19/2019 FINDINGS: Heart size and pulmonary vascular normal. NG tube remains in place. There is persistent mild elevation left hemidiaphragm similar to prior study. There is minimal patchy infrahilar density bilaterally similar to prior study. IMPRESSION: Minimal patchy infrahilar densities bilaterally similar to prior study Chest 2V, Abdomen 2V AP Flat Upright CLINICAL HISTORY: Distention FINDINGS: There has been some decrease in gaseous distention of colon and some small bowel loops. No free air is identified. NG tube is seen in the descending duodenum. IMPRESSION: Decreasing gaseous distention since prior study :
--- NOTE | 2019-12-22 08:59 | CR ---
Abdomen 2V AP Flat Upright CLINICAL HISTORY: Ileus FINDINGS: There is a decrease in gaseous distention of colon and some small bowel loops when compared to prior study. NG tube is in the distal stomach. No free air is seen IMPRESSION: Decreasing gaseous distention suggests improvement in ileus
--- NOTE | 2019-12-22 12:00 | PN ---
DATE OF SERVICE: 12/22/2019 SUBJECTIVE: Ramos's ileus has resolved. He has had 2 bowel movements. Denies any abdominal pain. Continues to have his cough, but is able to eat and drink without any difficulty. He had a total of 1040 in, 2000 out and had yesterday 100% of his breakfast, lunch, and dinner. REVIEW OF SYSTEMS: Remainder of review of systems negative for any pertinent positives and negatives. OBJECTIVE: GENERAL: Ramos Parry is a pleasant 69-year-old male. Alert, orientated. VITAL SIGNS: TPR at 07:51, 97.5; 74; 16; blood pressure 90/65. HEENT: Negative. NECK: Supple. HEART: Regular rate and rhythm. LUNGS: Revealed decreased breath sounds. Rales and rhonchi bilaterally. He has a congested-sounding cough. ABDOMEN: Soft, flat, nontender. EXTREMITIES: Negative. ASSESSMENT: 1. Ileus, resolved. 2. Pneumonia. PLAN: Advance to regular diet. Discharge per Malik Eugene MD. Seema Allen PA-C /[id number]
--- NOTE | 2019-12-22 13:09 | PCM.PN ---
- General Info Date of Service: 12/22/19 Subjective Update: He had a regular meal today and feeling good. He has no GI or respiratory complaints presently. - Review of Systems General: Reports: No Symptoms HEENT: Reports: No Symptoms Pulmonary: Reports: No Symptoms Cardiovascular: Reports: No Symptoms Gastrointestinal: Reports: No Symptoms Genitourinary: Reports: No Symptoms Musculoskeletal: Reports: No Symptoms Skin: Reports: No Symptoms Neurological: Reports: No Symptoms Psychiatric: Reports: No Symptoms - Patient Data Vitals - Most Recent: Last Vital Signs Temp 97.7 F 12/22/19 11:14 Pulse 66 12/22/19 11:14 Resp 18 12/22/19 11:14 BP 102/65 12/22/19 11:14 Pulse Ox 95 12/22/19 11:14 Weight - Most Recent: 180 lb 6.4 oz I&O - Last 24 Hours: Intake & Output 12/21/19 12/22/19 12/22/19 22:59 06:59 14:59 Intake Total 60 600 Output Total 200 Balance 60 400 Ken Results Last 24 Hours: Microbiology 12/18/19 12:05 Fungal Culture - Preliminary Sputum - Expectorated NO FUNGAL GROWTH AT 1 WEEK Med Orders - Current: Current Medications Albuterol/Ipratropium (Duoneb 3.0-0.5 Mg/3 Ml) 3 ml NEB Q4H PRN PRN Reason: Shortness of Breath Azithromycin (Zithromax) 250 mg PO DAILY [facility] Last Admin: 12/22/19 08:03 Dose: 250 mg Bisacodyl (Dulcolax) 10 mg PO BID [facility] Last Admin: 12/22/19 08:02 Dose: 10 mg Pantoprazole Sodium (Protonix) 40 mg PO ACBREAKFAST [facility] Last Admin: 12/22/19 08:02 Dose: 40 mg Sodium Chloride (Saline Flush) 10 ml FLUSH ASDIRECTED PRN PRN Reason: Keep Vein Open Discontinued Medications Albuterol (Proventil Neb Soln) 2.5 mg NEB Q4H [facility] Last Admin: 12/19/19 06:01 Dose: 2.5 mg Bisacodyl (Dulcolax) 10 mg RECTAL BID [facility] Stop: 12/19/19 21:01 Last Admin: 12/19/19 22:51 Dose: 10 mg Furosemide (Lasix) 10 mg IV ONETIME ONE Stop: 12/20/19 09:01 Last Admin: 12/20/19 09:37 Dose: 10 mg Furosemide (Lasix) 20 mg IV ONETIME ONE Stop: 12/21/19 09:01 Last Admin: 12/21/19 09:26 Dose: 20 mg Dextrose/Sodium Chloride (Dextrose 5%-1/2 Ns) 1,000 mls @ 125 mls/hr IV ASDIRECTED [facility] Stop: 12/17/19 19:00 Sodium Chloride (Normal Saline) 1,000 mls @ 125 mls/hr IV ASDIRECTED [facility] Ceftriaxone Sodium 1 gm/ (Sodium Chloride) 50 mls @ 100 mls/hr IV Q24H [facility] Last Admin: 12/17/19 20:35 Dose: 100 mls/hr Dextrose/Sodium Chloride (Dextrose 5%-Normal Saline) 1,000 mls @ 125 mls/hr IV ASDIRECTED [facility] Stop: 12/19/19 09:59 Last Admin: 12/18/19 19:32 Dose: 125 mls/hr Sodium Chloride (Normal Saline) 79 mls @ 3.5 mls/sec IV ASDIRECTED [facility] Stop: 12/18/19 09:46 Last Admin: 12/18/19 10:08 Dose: 3.5 mls/sec Azithromycin 125 mg/ Sodium (Chloride) 100 mls @ 200 mls/hr IV Q12H [facility] Last Admin: 12/21/19 01:21 Dose: 200 mls/hr Ceftriaxone Sodium 2 gm/ (Sodium Chloride) 50 mls @ 100 mls/hr IV ONETIME ONE Stop: 12/18/19 17:29 Last Admin: 12/18/19 17:11 Dose: 100 mls/hr Ceftriaxone Sodium 1 gm/ (Sodium Chloride) 50 mls @ 100 mls/hr IV Q24H [facility] Last Admin: 12/20/19 17:00 Dose: 100 mls/hr Potassium Phosphate 15 mmole/ (Dextrose/Water) 255 mls @ 125 mls/hr IV Q2H [facility] Stop: 12/19/19 13:59 Last Admin: 12/19/19 12:21 Dose: 125 mls/hr Potassium Phosphate 15 mmole/ (Dextrose/Sodium Chloride) 1,005 mls @ 100 mls/ hr IV .Q10H3M [facility] Stop: 12/20/19 09:50 Last Admin: 12/20/19 02:35 Dose: 125 mls/hr Potassium Phosphate 15 mmole/ (Dextrose/Sodium Chloride) 1,005 mls @ 75 mls/hr IV .[id number] [facility] Stop: 12/21/19 15:00 Last Admin: 12/21/19 05:44 Dose: 100 mls/hr Potassium Phosphate 15 mmole/ (Dextrose/Sodium Chloride) 1,005 mls @ 75 mls/hr IV .[id number] [facility] Iopamidol (Isovue-300 (61%)) 128 ml IV ONETIME ONE Stop: 12/18/19 09:45 Last Admin: 12/18/19 10:09 Dose: 128 ml Ketorolac Tromethamine (Toradol) 15 mg IVPUSH ONETIME ONE Stop: 12/21/19 10:46 Last Admin: 12/21/19 10:44 Dose: 15 mg Pantoprazole Sodium (Protonix Iv) 40 mg IV Q24H [facility] Last Admin: 12/20/19 14:02 Dose: 40 mg Potassium Chloride (Klor-Con M20) 20 meq PO DAILY [facility] Last Admin: 12/19/19 22:53 Dose: Not Given Sodium Chloride (Saline Flush) 10 ml FLUSH ONETIME PRN PRN Reason: per radiology protocol Stop: 12/18/19 09:45 Last Admin: 12/18/19 10:08 Dose: 10 ml - Exam General: Alert, Oriented HEENT: Pupils Equal, Pupils Reactive, EOMI, Mucous Membr. Moist/[place] Neck: Supple Lungs: Clear to Auscultation, Normal Respiratory Effort Cardiovascular: Regular Rate, Regular Rhythm GI/Abdominal Exam: Normal Bowel Sounds, Soft, Non-Tender, No Organomegaly, No Distention, No Abnormal Bruit, No Mass, Pelvis Stable (Male) Exam: No Hernia, Normal Inspection, Normal Prostate, Circumcised Back Exam: Normal Inspection, Full Range of Motion Extremities: Normal Inspection, Normal Range of Motion, Non-Tender, No Pedal Edema, Normal Capillary Refill Peripheral Pulses: 1+: Radial (L), Radial (R) Skin: Warm, Dry, Intact Neurological: No New Focal Deficit Psy/Mental Status: Alert, Normal Affect, Normal Mood Sepsis Event Note - Evaluation Sepsis Screening Result: No Definite Risk - Focused Exam Vital Signs: Vital Signs Temp Pulse Resp BP Pulse Ox 12/22/19 11:14 97.7 F 66 18 102/65 95 12/22/19 07:51 97.5 F 74 16 90/65 94 L 12/22/19 02:11 97.7 F 53 L 18 134/64 96 Date Exam was Performed: 12/22/19 Time Exam was Performed: 13:06 - Problem List Review Problem List Initiated/Reviewed/Updated: Yes - My Orders Last 24 Hours: My Active Orders 12/21/19 14:00 Azithromycin [Zithromax] 250 mg PO DAILY 12/22/19 07:30 Pantoprazole [ProTONIX] 40 mg PO ACBREAKFAST - Plan Plan:: Assessment/Plan: #1. Acute abd. pain with Ileus. Resolved #2. Respiratory distress has resolved and lungs clear. #3. Hypo kalemia. resolved. K level is 4.2 Will discharge home.mariano
--- NOTE | 2019-12-22 13:10 | PCM.DCSUM1 ---
Discharge Summary - Hospital Course Brief History: Admitted with abdominal pain and in respiratory distress. - Discharge Data Discharge Date: 12/22/19 Discharge Disposition: Home, Self-Care 01 Condition: Good - Referral to Home Health Primary Care Physician: Malik Eugene Sr, MD - Patient Summary/Data Consults: Consultations 12/18/19 14:15 Consult to Physical Therapy [PT Evaluation and Treatment] [CONS] Routine Please Evaluate and Treat. PT Reason for Consult: Strengthening Pending Discharge: Yes Discharge Disposition: Home This query below is only for informational purposes and is not editable. Admission Diagnosis/Problem: Ileus Hospital Course: He had an abdominal ileus which resolved. His respiratory problem resolved. CT of the chest showed a ground glass appearance without an infiltrate. He did receive Rocephin for the lung problem and Zithromax for gut stimulation. His K was low and was corrected with K supplement. The lung problem and the GI Ileus resolved. - Patient Instructions Diet: Heart Healthy Diet Activity: As Tolerated Showering/Bathing: January Shower Notify Provider of: Fever - Discharge Plan *PRESCRIPTION DRUG MONITORING PROGRAM REVIEWED*: No *COPY OF PRESCRIPTION DRUG MONITORING REPORT IN PATIENT KIMBERLI: No Home Medications: Home Meds EPINEPHrine [Epipen] 0.3 mg IM ASDIRECTED PRN 12/02/13 [History] Ascorbic Acid [Vitamin C] 500 mg PO DAILY 11/05/18 [History] Biotin 1 mg PO DAILY 11/05/18 [History] Cholecalciferol (Vitamin D3) [Vitamin D3] 2,000 unit PO DAILY 11/05/18 [History] Vitamin B Complex 1 each PO DAILY 11/05/18 [History] Lactobacillus Acidophilus [Probiotic] 1 each PO BID 04/22/19 [History] Amoxicillin/Potassium Clav [Amox-Clav 875-125 mg Tablet] 1 each PO BID 12/16/19 [History] predniSONE [Prednisone] 40 mg PO ASDIRECTED 12/16/19 [History] - Discharge Summary/Plan Comment DC Time >30 min.: No - Patient Data Vitals - Most Recent: Last Vital Signs Temp 97.7 F 12/22/19 11:14 Pulse 66 12/22/19 11:14 Resp 18 12/22/19 11:14 BP 102/65 12/22/19 11:14 Pulse Ox 95 12/22/19 11:14 Weight - Most Recent: 180 lb 6.4 oz I&O - Last 24 hours: Intake & Output 12/21/19 12/22/19 12/22/19 22:59 06:59 14:59 Intake Total 60 600 Output Total 200 Balance 60 400 [place] Results - Last 24 hrs: Microbiology 12/18/19 12:05 Fungal Culture - Preliminary Sputum - Expectorated NO FUNGAL GROWTH AT 1 WEEK Med Orders - Current: Current Medications Albuterol/Ipratropium (Duoneb 3.0-0.5 Mg/3 Ml) 3 ml NEB Q4H PRN PRN Reason: Shortness of Breath Azithromycin (Zithromax) 250 mg PO DAILY [facility] Last Admin: 12/22/19 08:03 Dose: 250 mg Bisacodyl (Dulcolax) 10 mg PO BID [facility] Last Admin: 12/22/19 08:02 Dose: 10 mg Pantoprazole Sodium (Protonix) 40 mg PO ACBREAKFAST [facility] Last Admin: 12/22/19 08:02 Dose: 40 mg Sodium Chloride (Saline Flush) 10 ml FLUSH ASDIRECTED PRN PRN Reason: Keep Vein Open Discontinued Medications Albuterol (Proventil Neb Soln) 2.5 mg NEB Q4H [facility] Last Admin: 12/19/19 06:01 Dose: 2.5 mg Bisacodyl (Dulcolax) 10 mg RECTAL BID [facility] Stop: 12/19/19 21:01 Last Admin: 12/19/19 22:51 Dose: 10 mg Furosemide (Lasix) 10 mg IV ONETIME ONE Stop: 12/20/19 09:01 Last Admin: 12/20/19 09:37 Dose: 10 mg Furosemide (Lasix) 20 mg IV ONETIME ONE Stop: 12/21/19 09:01 Last Admin: 12/21/19 09:26 Dose: 20 mg Dextrose/Sodium Chloride (Dextrose 5%-1/2 Ns) 1,000 mls @ 125 mls/hr IV ASDIRECTED [facility] Stop: 12/17/19 19:00 Sodium Chloride (Normal Saline) 1,000 mls @ 125 mls/hr IV ASDIRECTED [facility] Ceftriaxone Sodium 1 gm/ (Sodium Chloride) 50 mls @ 100 mls/hr IV Q24H [facility] Last Admin: 12/17/19 20:35 Dose: 100 mls/hr Dextrose/Sodium Chloride (Dextrose 5%-Normal Saline) 1,000 mls @ 125 mls/hr IV ASDIRECTED [facility] Stop: 12/19/19 09:59 Last Admin: 12/18/19 19:32 Dose: 125 mls/hr Sodium Chloride (Normal Saline) 79 mls @ 3.5 mls/sec IV ASDIRECTED [facility] Stop: 12/18/19 09:46 Last Admin: 12/18/19 10:08 Dose: 3.5 mls/sec Azithromycin 125 mg/ Sodium (Chloride) 100 mls @ 200 mls/hr IV Q12H [facility] Last Admin: 12/21/19 01:21 Dose: 200 mls/hr Ceftriaxone Sodium 2 gm/ (Sodium Chloride) 50 mls @ 100 mls/hr IV ONETIME ONE Stop: 12/18/19 17:29 Last Admin: 12/18/19 17:11 Dose: 100 mls/hr Ceftriaxone Sodium 1 gm/ (Sodium Chloride) 50 mls @ 100 mls/hr IV Q24H [facility] Last Admin: 12/20/19 17:00 Dose: 100 mls/hr Potassium Phosphate 15 mmole/ (Dextrose/Water) 255 mls @ 125 mls/hr IV Q2H [facility] Stop: 12/19/19 13:59 Last Admin: 12/19/19 12:21 Dose: 125 mls/hr Potassium Phosphate 15 mmole/ (Dextrose/Sodium Chloride) 1,005 mls @ 100 mls/ hr IV .Q10H3M [facility] Stop: 12/20/19 09:50 Last Admin: 12/20/19 02:35 Dose: 125 mls/hr Potassium Phosphate 15 mmole/ (Dextrose/Sodium Chloride) 1,005 mls @ 75 mls/hr IV .[id number] [facility] Stop: 12/21/19 15:00 Last Admin: 12/21/19 05:44 Dose: 100 mls/hr Potassium Phosphate 15 mmole/ (Dextrose/Sodium Chloride) 1,005 mls @ 75 mls/hr IV .[id number] [facility] Iopamidol (Isovue-300 (61%)) 128 ml IV ONETIME ONE Stop: 12/18/19 09:45 Last Admin: 12/18/19 10:09 Dose: 128 ml Ketorolac Tromethamine (Toradol) 15 mg IVPUSH ONETIME ONE Stop: 12/21/19 10:46 Last Admin: 12/21/19 10:44 Dose: 15 mg Pantoprazole Sodium (Protonix Iv) 40 mg IV Q24H [facility] Last Admin: 12/20/19 14:02 Dose: 40 mg Potassium Chloride (Klor-Con M20) 20 meq PO DAILY [facility] Last Admin: 12/19/19 22:53 Dose: Not Given Sodium Chloride (Saline Flush) 10 ml FLUSH ONETIME PRN PRN Reason: per radiology protocol Stop: 12/18/19 09:45 Last Admin: 12/18/19 10:08 Dose: 10 ml
--- NOTE | 2019-12-22 13:29 | PN ---
DATE OF SERVICE: 12/21/2019 The patient has been afebrile with stable vital signs. His respiratory status appears to be quite a bit better to me, and he has also moved his bowels. Abdominal x-ray looks quite good with much less in the way of overall gas and essentially all of the gas in the colon. We will discontinue the NG tube and go to full-liquid diet. Initially, he responded very well to the Lasix, thus we will give him additional dose today and continue with some bowel stimulation. He may be ready for discharge home, perhaps tomorrow, per Dr. Eugene's discretion. Buck Corley MD /[id number]
--- NOTE | 2019-12-24 14:22 | CONS ---
DATE OF SERVICE: 12/18/2019 REFERRING PHYSICIAN: CONSULTING PHYSICIAN: Buck Corley MD HISTORY OF PRESENT ILLNESS: This is a 69-year-old male admitted per Dr. Eugene yesterday evening with a picture of fever, marked cough which is nonproductive, and abdominal distention. He has been to the ER twice in the last 5 days and was told that he did not have pneumonia, was started on Zithromax but is not significantly improved. After admission, [facility] was contacted by the [facility] shift nursing professor who felt that he did not meet criteria for screening for COVID-19. His past medical history, family history, and social history are per Dr. Eugene's H and P. PHYSICAL EXAMINATION: VITAL SIGNS: On examination, the patient is presently afebrile with stable vital signs. HEENT: Unremarkable. HEART: Regular rate and rhythm. LUNGS: With some slight crackles, but the cough is nonproductive. ABDOMEN: Quite distended and the abdominal CT obtained is consistent with a paralytic ileus. There is some elevation of the left hemidiaphragm which maybe chronic or maybe related to the abdominal distention. The abdomen while distended is not particularly tender and would not be suspicious for peritonitis per se. LABORATORY DATA: Other labs obtained last night showed negative influenza A and influenza B antigen test. White count 6400, hemoglobin 14.8, and electrolytes are unremarkable. IMPRESSION: 1. Fever with productive cough of uncertain etiology. Certainly, chest x-ray does not show any obvious infiltrate at this point. 2. Ileus, likely related secondarily to the primary pulmonary diagnosis. RECOMMENDATION: At this point would be to continue with nasogastric suctioning. We will try and get a sputum Gram stain, C and S, fungal stain and culture. We will start him on some Protonix IV to decrease the gastric secretions, recheck some labs in the morning along with flat and upright abdominal x-ray. One therapeutic addition will be adding Zithromax 125 mg IV push. This will not be for antibiotic course but to augment GI tract motility. We will see the patient daily until the pain resolves. Buck Corley MD /[id number]
== END 2019-12-22 14:16 | disposition home or self-care (01) | DRG 390 ==
LOC: JP.2SS 15:34
PROVIDERS: ADMIT Internal Medicine; ATTEND Internal Medicine
PROC: 0D9670Z Drainage of Stomach with Drainage Device, Via Natural or Artificial Opening (ICD-10-PCS; principal; 2019-12-17)
DX: K56.7 Ileus, unspecified (principal); H91.90 Unspecified hearing loss, unspecified ear; H54.7 Unspecified visual loss; E78.00 Pure hypercholesterolemia, unspecified; M19.90 Unspecified osteoarthritis, unspecified site; R06.03 Acute respiratory distress; E87.6 Hypokalemia; Z79.899 Other long term (current) drug therapy; Z79.52 Long term (current) use of systemic steroids; Z91.030 Bee allergy status; Z87.01 Personal history of pneumonia (recurrent); Z87.11 Personal history of peptic ulcer disease; Z86.010 Personal history of colon polyps
CPT/HCPCS: 36415; 51798; 71046; 71046-26; 71250; 71250-26; 74019; 74019-26; 74177; 74177-26; 80053; 83735; 83880; 84100; 85025; 85027; 87070; 87077; 87102; 87205; 87206; 87804; 87804-59; 94640; 94762; 97140-GP; 97162-GP; 97530-GP; A9270-GY; C9113; J0456; J0696; J1885; J1940; J3490; J7042; J7050; J7060; Q9967

== ENCOUNTER 2022-11-04 09:32 | Emergency (ER) | payer MEDICARE ==
[2022-11-04] MEDS ORDERED: Bacitracin Oint 1 GM U/D Packet TOP ONE (09:35)
[2022-11-04] MEDS ORDERED: Lidocaine 1% with EPINEPHrine 1:100,000 50 ML MDV SUBCUT ONE (09:35)
[2022-11-04] MEDS ORDERED: Diphtheria,Pertussis(Acell),Tetanus Vaccine 0.5 ML Syringe IM ONE (10:16)
== END 2022-11-04 10:33 | disposition home or self-care (01) ==
LOC: JP.ED 09:32
DX: S01.111A Laceration without foreign body of right eyelid and periocular area, initial encounter (principal); S60.221A Contusion of right hand, initial encounter; E78.00 Pure hypercholesterolemia, unspecified; Z91.030 Bee allergy status; Z23 Encounter for immunization; W00.0XXA Fall on same level due to ice and snow, initial encounter
CPT/HCPCS: 12002; 12013; 90471; 90715; 99281; 99282

== ENCOUNTER 2024-12-11 05:52 | Emergency (ER) | payer MEDICARE ==
[2024-12-11 06:03] LABS: BASOPHILS ABSOLUTE AUTO 0.03 K/uL (0.00-0.10); BASOPHILS PERCENT AUTO 0.4 % (0.1-1.3); EOSINOPHILS ABSOLUTE AUTO 0.13 K/uL (0.00-0.40); EOSINOPHILS PERCENT AUTO 1.8 % (0.0-5.4); HEMATOCRIT 40.1 % (38.4-49.7); IMMATURE GRAN PERCENT AUTO 0.1 % (0.0-0.7); LYMPHOCYTES ABSOLUTE AUTO 1.24 K/uL (0.8-3.3); LYMPHOCYTES PERCENT AUTO 17.2 % (11.4-47.7); MEAN CORPUSCULAR HEMOGLOBIN 30.2 pg (31.6-35.5); MEAN CORPUSCULAR HGB CONC 34.9 g/dL (31.6-35.5); MEAN CORPUSCULAR VOLUME 86.4 fL (81.4-99.0); MONOCYTES ABSOLUTE AUTO 0.86 K/uL (0.20-0.90); MONOCYTES PERCENT AUTO 11.9 % (3.3-12.6); NEUTROPHILS ABSOLUTE AUTO 4.94 K/uL (1.0-7.6); NEUTROPHILS PERCENT AUTO 68.6 % (40.0-78.1); PLATELET COUNT,PLT 189 K/uL (130-375); RED BLOOD CELL COUNT 4.64 M/uL (4.14-5.76); WHITE BLOOD CELL COUNT,WBC 7.2 K/uL (3.2-11.0)
[2024-12-11 06:20] LABS: IMMATURE GRAN ABSOLUTE AUTO 0.01 K/uL (0.00-0.23)
[2024-12-11 06:23] LABS: ANION GAP 7.7 mmol/L (5.0-14.0); CALCIUM 9.6 mg/dL (8.5-10.1); CREATININE 1.1 mg/dL (0.8-1.3); EST CRCL DRUG DOSING (CG) 62.71 mL/min; POTASSIUM,K 4.2 mmol/L (3.6-5.2); TROPONIN I HIGH SENSITIVITY 4.1 pg/mL (<=60.3)
[2024-12-11] MEDS: Aspirin 81 MG Tab.Chew PO ONE (06:46)
== END 2024-12-11 08:47 | disposition home or self-care (01) ==
LOC: JP.ED 05:52
DX: R07.9 Chest pain, unspecified (principal); E78.00 Pure hypercholesterolemia, unspecified; Z91.030 Bee allergy status; Z91.018 Allergy to other foods; Z79.899 Other long term (current) drug therapy
CPT/HCPCS: 36415; 71045; 80048; 84484; 85025; 93005; 93010; 99283; 99285; A9270